=== PATIENT | female | born 1960 ===

== ENCOUNTER 2021-07-30 14:44 | Inpatient (IN) | payer OTHER, SELFPAY ==
[2021-07-30] VITALS (69 sets, daily range): BP systolic 101–135; BP diastolic 63–91; PULSE 65–99; RESP 9–35; TEMP 36.6–36.7; O2SAT 79–100
--- NOTE | 2021-07-30 14:45 | RT.EKG_ITS ---
APPROVED REPORT Exam: Resting ECG Reason for Exam: dizzy Patient Location: E HR:82 bpm ECG Measurements Heart Rate 82 AXIS WI 128 P 40 QRSd 101 QRS -8 QT 370 T 18 QTc 434 Conclusion Sinus rhythm...normal P axis, V-rate 60- 99 Low voltage, precordial leads...precordial leads <1.0mV sinus rhythm, normal axis, normal intervals, non ischemic
--- NOTE | 2021-07-30 15:44 | W.ED.GENAD ---
Discharge Plan Disposition Patient Disposition: STILL A PATIENT Condition: Stable Discharge Details Admit Date/Time: 07/30/21 20:49 Admit Provider: Jesica Fuentes Attending Provider: Jesica Fuentes Primary Care Provider: Unknown,Unknown ED Provider: Mike Talley Discharge Data Discharge Date/Time-TO BE ENTERED AT DEPARTURE: 07/30/21 21:03 Medical Decision Making <HAILEY Garcia - Last Filed: 07/31/21 19:56> Given patient's description of the event and symptoms associated I think she would benefit from admission for telemetry monitoring EKG is normal sinus rhythm at time of assessment Diagnostic labs are pending including troponin Blood pressure stable at time of assessment [facility] providerDr. Talley at 1600 pending labs and chest x-ray Patient with positive troponin. Delta troponin was obtained. The patient had no recurrence of dysrhythmias in the emergency department. I discussed the case with cardiology at [facility], Dr Denis Deshpande. The patient is on the emergent transfer list. Lovenox for anticoagulation. Case d/w Dr Fuentes - patient tda Medical Records Medical records reviewed: Yes I reviewed the patient's medical records. Lab Data Lab results reviewed: Yes I reviewed the patient's lab results. <Mike Talley MD - Last Filed: 07/30/21 20:50> Given patient's description of the event and symptoms associated I think she would benefit from admission for telemetry monitoring EKG is normal sinus rhythm at time of assessment Diagnostic labs are pending including troponin Blood pressure stable at time of assessment Service transferred to [facility] providerDr. Talley at 1600 pending labs and chest x-ray Patient with positive troponin. Delta troponin was obtained. The patient had no recurrence of dysrhythmias in the emergency department. I discussed the case with cardiology at [facility], Dr Denis Dsehpande. The patient is on the emergent transfer list. Lovenox for anticoagulation. Case d/w Dr Fuentes - patient tda HPI <HAILEY Garcia - Last Filed: 07/31/21 19:56> General Date/Time Provider Initiated Documentation: 07/30/21 15:04. HPI Narrative: This 61-year-old female who is otherwise healthy presents with report of palpitations and racing heartbeat, 190 per patient with hypotension, 80/50 on blood pressure cuff at home. She states this occurred directly after mowing the lawn. She states she felt very lightheaded and had to lower herself to the ground. She is unsure if she lost consciousness. She states that she was confused for several minutes. They reportedly have a blood pressure cuff at home that also checked her pulse and she confirmed her pulse at home. By time EMS arrived she was feeling improved without any palpitations. She did she had a similar episode in October and was not evaluated for this. She had some neck pain with radiation into her left arm with the bracing heart sensation. She denies any prior history of DVT. She does not smoke, drink, or use any illicit drugs. She denies any calf pain or swelling. She denies any injuries related to the event. Related Data Home Medications Medication Instructions Recorded Confirmed aspirin 325 mg tablet 325 mg PO PRN PRN 07/30/21 07/30/21 cranberry extract 650 mg capsule 650 mg PO DAILY 07/30/21 07/30/21 (Theracran) d-mannose 500 mg capsule 500 mg PO DAILY 07/30/21 07/30/21 famotidine 20 mg tablet (Pepcid) 20 mg PO .QHS 07/30/21 07/30/21 Allergies Allergy/AdvReac Type Severity Reaction Status Date / Time codeine Allergy Unverified 07/30/21 15:04 levofloxacin [From Levaquin] Allergy Unverified 07/30/21 15:05 General Stated Complaint: Dizzy/Sync ANUEL: 2 Review of Systems <HAILEY Garcia - Last Filed: 07/31/21 19:56> All systems reviewed & are unremarkable except as noted in HPI and below PFSH <HAILEY Garcia - Last Filed: 07/31/21 19:56> All Active Problems (Updated 07/30/21 @ 23:37 by Jesica Fuentes MD) Syncope (Acute) Discharge planning issues (Acute) DVT prophylaxis (Acute) Tachyarrhythmia (Acute) NSTEMI (non-ST elevated myocardial infarction) (Acute) Medical History (Updated 07/30/21 @ 23:37 by Jesica Fuentes MD) GERD (gastroesophageal reflux disease) Obesity (BMI 30.0-34.9) Vasovagal syncope Surgical History (Updated 07/30/21 @ 23:27 by Jesica Fuentes MD) S/P total abdominal hysterectomy and bilateral salpingo-oophorectomy for endometriosis Family History (Updated 07/30/21 @ 23:28 by Jesica Fuentes MD) Father Heart disease at the age of 50 Diabetes Cancer lymphoma Social History (Updated 07/30/21 @ 23:28 by Jesica Fuentes MD) Smoking/Tobacco Use Status: Never Smoking risk assessment performed?: Yes Alcohol Intake: current Alcohol Intake frequency: a few times a month Drug use: Never Exam <HAILEY Garcia - Last Filed: 07/31/21 19:56> Const General: cooperative, comfortable and no acute distress Orientation: alert and oriented x3 Eyes Pupils: PERRL Resp Effort & Inspection: normal respiratory effort Auscultation: clear to auscultation bilaterally Cardio Rate: regular rate Rhythm: regular rhythm GI Inspection: normal to inspection Auscultation: normal bowel sounds Other: No tenderness to palpation Skin General skin exam: no rashes or lesions noted Neuro General: patient alert and patient oriented x3 Extrem General: normal to inspection Other: Distal pulses intact No peripheral edema, no swelling or tenderness Course <HAILEY Garcia Last Filed: 07/31/21 19:56> Vital Signs Vital signs: Vital Signs Temperature 36.6 C 07/30/21 14:56 Pulse 86 07/30/21 14:56 Respiratory Rate 16 07/30/21 14:56 Blood Pressure 127/73 07/30/21 14:56 Pulse Oximetry 100 07/30/21 14:56 Temperature 36.6 C 07/30/21 14:56 Temperature Source Oral 07/30/21 14:56 Pulse 86 07/30/21 14:56 Respiratory Rate 14 07/30/21 15:12 Respiratory Effort 07/30/21 15:12 Respiratory Depth Normal 07/30/21 15:12 Respiratory Pattern Normal 07/30/21 15:12 Blood Pressure 127/73 07/30/21 14:56 Blood Pressure Position Sitting 07/30/21 14:56 Pulse Oximetry 100 07/30/21 14:56 Oxygen Delivery Method Room Air 07/30/21 14:56 Oxygen Flow Rate 0 07/30/21 14:56 Pain Level 0 07/30/21 14:56 Sign Out <HAILEY Garcia Last Filed: 07/31/21 19:56> Sign Out Data: Sign Out Comment: pending labs, cxr, and disposition Last updated by Raquel Reilly PA at 07/30/21 16:05
--- NOTE | 2021-07-30 15:45 | DI.RAD_ITS ---
Exam(s) XR PORTABLE CHEST AP EXAM: XR PORTABLE CHEST AP CLINICAL HISTORY: chest pain TECHNIQUE: 2D digital imaging was performed of the chest. One image was obtained. An AP view was ob tained. COMPARISON: No exams were available for comparison FINDINGS: MEDIASTINUM: Normal. HEART: Normal. PULMONARY VASCULATURE: Normal. LUNGS: Clear. PLEURAL SPACE: No pleural effusion or pneumothorax. BONE:Within normal limits for the patient's age. OTHER FINDINGS:Normal. IMPRESSION: No acute pulmonary findings. DATA REPOSITORY: RADIATION DOSE DELIVERED:
[2021-07-30 15:51] LABS: Abs Immature Grans 0.02 10^3/uL (0.0-0.06); Absolute Basophil Count 0.04 10^3/uL (0.0-0.2); Absolute Eosinophil Count 0.09 10^3/uL (0.0-0.7); Absolute Lymphocyte Count 1.69 10^3/uL (1.2-3.4); Absolute Monocyte Count 0.42 10^3/uL (0.1-0.8); Absolute Neutrophil Count 6.93 10^3/uL (1.2-6.7); Basophils % 0.4; HCT 43.9 % (36.0-46.0); HGB 14.3 g/dL (11.2-15.7); Immature Grans % 0.2; Lymphocytes % 18.4; MCH 29.8 pg (27.0-33.0); MCHC 32.6 % (32.0-36.0); MCV 92 fL (80-95); MPV 8.9 fL (8.0-11.0); Monocytes % 4.6; Neutrophils % 75.4; Platelet Count 194 10^3/uL (130-400); RDW 12.5 % (11.7-14.6); RDW-SD 41.8 fL; WBC 9.19 10^3/uL (4.4-10.8)
[2021-07-30] MEDS: Normal Saline 1,000 ML 1000 ML IV (15:53)
--- NOTE | 2021-07-30 16:13 | DI.VRAD_ITS ---
PROCEDURE INFORMATION: Exam: XR Chest Exam date and time: 07/30/2021 3:47 PM Age: 61 years old Clinical indication: Other: Unspecified chest pain TECHNIQUE: Imaging protocol: XR of the chest. Views: 1 view. COMPARISON: No relevant prior studies available. FINDINGS: Tubes, catheters and devices: EKG leads overlie the chest. Lungs: Unremarkable. No consolidation. Pleural spaces: Unremarkable. No pleural effusion. No pneumothorax. Heart/Mediastinum: Unremarkable. No cardiomegaly. Bones/joints: Unremarkable. IMPRESSION: No acute findings. Dictated and Authenticated by: Yehuda Recio MD. Ordering:BRITTANY García MD
[2021-07-30 16:14] LABS: ALT 107 U/L (14-59); AST 80 U/L (15-37); Albumin 3.6 g/dL (3.4-5.0); Alkaline Phosphatase 74 U/L (46-116); Anion Gap 11.6 mmol/L (3-11); BUN 14 mg/dL (7-18); Bilirubin, Total 0.4 mg/dL (0.2-1.0); CO2 25.4 mmol/L (21.0-32.0); CREATININE 1.1 mg/dL (0.55-1.02); Calcium 9.8 mg/dL (8.5-10.1); Chloride 107 mmol/L (98-107); Glucose 99 mg/dL (74-106); Magnesium 2.3 mg/dL (1.8-2.4); Potassium 3.5 mmol/L (3.5-5.1); Sodium 144 mmol/L (136-145); TSH (W/Ref FT4) 1.69 uIU/mL (0.36-3.74); Total Protein 7.7 g/dL (6.4-8.2)
[2021-07-30 16:17] LABS: Troponin I 322 ng/L (<or=60)
--- NOTE | 2021-07-30 16:19 | NUR.NOTE ---
pt states that durung the light headed episode she felt that her HR was 190 by palp ( herself) Nursing Note:
[2021-07-30 18:01] LABS: Source Nasal/Nares
[2021-07-30 18:50] LABS: COVID-19 PCR Negative (Negative)
[2021-07-30 19:14] LABS: Troponin I 666 ng/L (<or=60)
--- NOTE | 2021-07-30 19:15 | RT.EKG_ITS ---
APPROVED REPORT Exam: Resting ECG Reason for Exam: high trop Patient Location: E HR:74 bpm ECG Measurements Heart Rate 74 AXIS FL 132 P 42 QRSd 97 QRS 5 QT 385 T 28 QTc 427 Conclusion Sinus rhythm...normal P axis, V-rate 60- 99 Atrial premature complex...SV complex w/ short R-R interval Low voltage, extremity leads...all extremity leads <0.5mV sinus rhythm, normal axis, normal intervals, non ischemic
[2021-07-30] MEDS: Enoxaparin 80 MG/0.8 ML SYR SC (20:56)
--- NOTE | 2021-07-30 21:58 | HPE_ITS ---
Date of service: 07/30/21 Time of Service: 20:58 Assessment and Plan Assessment and plan (1) NSTEMI (non-ST elevated myocardial infarction): Status: Acute Assessment and plan: Accepted in transfer to [facility] when bed available under the care of Dr Deshpande. Will monitor on tele while trending troponins. Check D-dimer given recent travel. Received a dose of lovenox 80mg in the ED - will give 20 more mg to make it a weight based dose. Will continue asa. Will not give further lovenox as it might delay her anticipated cardiac cath. NPO after midnight. (2) Tachyarrhythmia: Status: Acute Assessment and plan: Will monitor for recurrence on tele. (3) Syncope: Status: Acute Assessment and plan: Due to above - as above (4) GERD (gastroesophageal reflux disease): Assessment and plan: Continue home pepcid. (5) Obesity (BMI 30.0-34.9): Assessment and plan: Check A1C, Fasting lipid panel (6) DVT prophylaxis: Status: Acute Assessment and plan: Therapeutic lovenox (7) Discharge planning issues: Status: Acute Assessment and plan: Full code Anticipate transfer to [facility] within 24 hrs History of Present Illness History of Present Illness Chief Complaint: Palpitations and left shoulder discomfort while mowing the lawn Narrative: Ms Salgado is a 61 yo F with PMHx of GERD who was brought to [facility] ED by ambulance after an episode of disorientation, lightheadedness, palpitations and L neck and shoulder discomfort while mowing today. The patient had lowered herself to the ground and thinks she may have syncopized, but came to it very quickly. When she felt a little better and went to the house, she used her automatic BP cuff, which showed HR of 199 and BP of 80/50. By the time EMS got to the house, she felt better. The whole episode lasted about 30 minutes. On arrival to the ED, the patient is normotensive and has a HR in the 80s. She is in NSR on the EKG. Her troponins, however, are positive (322->666). The patient was treated with asa, lovenox. The patient had one prior similar episode which was not investigated. She traveled from [place] where she resides 2 days ago by car. She thinks she may be dehydrated. She had COVID-19 in the beginning of July (tested negative on this admission). She drinks about 24 oz of coffee daily. She does not drink other caffeinated beverages and does not eat chocolate. She does snore. Her case was reviewed with [facility] cardiology, and the patient was accepted in transfer to [facility] under the care of Dr Deshpande. Admission to [facility] hospitalist service was requested while awaiting a bed at [facility] which should become available in the next 24 hrs. Review of Systems All systems reviewed & are unremarkable except as noted in HPI and below PFSH All Active Problems (Updated 07/30/21 @ 23:37 by Jesica Fuentes MD) Syncope (Acute) Discharge planning issues (Acute) DVT prophylaxis (Acute) Tachyarrhythmia (Acute) NSTEMI (non-ST elevated myocardial infarction) (Acute) Medical History (Updated 07/30/21 @ 23:37 by Jesica Fuentes MD) GERD (gastroesophageal reflux disease) Obesity (BMI 30.0-34.9) Vasovagal syncope Surgical History (Updated 07/30/21 @ 23:27 by Jesica Fuentes MD) S/P total abdominal hysterectomy and bilateral salpingo-oophorectomy for endometriosis Family History (Updated 07/30/21 @ 23:28 by Jesica Fuentes MD) Father Heart disease at the age of 50 Diabetes Cancer lymphoma Social History (Updated 07/30/21 @ 23:28 by Jesica Fuentes MD) Smoking/Tobacco Use Status: Never Smoking risk assessment performed?: Yes Alcohol Intake: current Alcohol Intake frequency: a few times a month Drug use: Never Meds Allergies and Home Medications Allergies Allergy/AdvReac Type Severity Reaction Status Date / Time codeine Allergy Unverified 07/30/21 15:04 levofloxacin [From Levaquin] Allergy Unverified 07/30/21 15:05 Home Medications Medication Instructions Recorded Confirmed Type aspirin 325 mg tablet 325 mg PO PRN PRN 07/30/21 07/30/21 History cranberry extract 650 mg capsule 650 mg PO DAILY 07/30/21 07/30/21 History (Theracran) d-mannose 500 mg capsule 500 mg PO DAILY 07/30/21 07/30/21 History famotidine 20 mg tablet (Pepcid) 20 mg PO .QHS 07/30/21 07/30/21 History Exam Narrative Exam Narrative: General: Pleasant middle-aged female who appears comfortable in bed, NAD Neurological: A&Ox3, no focal deficits Psychiatric: Appropriate speech pattern/content Skin: Visible skin intact, decreased skin turgor HEENT: Atraumatic, normocephalic, EOMI, MMM, clear oropharynx, no submandibular or cervical lymphadenopathy, no goiter or JVD Cardiovascular: RRR, no m/r/g Lungs: CTAB Gastrointestinal: soft,nontender, nondistended Genitourinary: deferred Extremities: no edema/clubbing/cyanosis, 2+pedal pulses B Results Imaging Additional studies: EKG #1: NSR, HR 82, no aucte ischemia EKG #2: NSR, HR 73, no acute ischemia CXR: No acute pulmonary findings Labs Result diagrams: 07/30/21 15:40 07/30/21 15:40 Labs: Laboratory Results - last 24 hr 07/30/21 07/30/21 07/30/21 15:40 15:40 17:59 WBC 9.19 RBC 4.80 Hgb 14.3 Hct 43.9 MCV 92 MCH 29.8 MCHC 32.6 RDW 12.5 Plt Count 194 MPV 8.9 Immature Gran % 0.2 Neutrophils % 75.4 Lymphocytes % 18.4 Monocytes % 4.6 Eosinophils % 1.0 Basophils % 0.4 Nucleated RBC % 0.0 Absolute Neutrophils 6.93 H Absolute Lymphocytes 1.69 Absolute Monocytes 0.42 Absolute Eosinophils 0.09 Absolute Basophils 0.04 Sodium 144 Potassium 3.5 Chloride 107 Carbon Dioxide 25.4 Anion Gap 11.6 H BUN 14 Creatinine 1.1 H Estimated GFR/1.73 m2 50.50 Glucose 99 Calcium 9.8 Magnesium 2.3 Total Bilirubin 0.4 AST 80 H ALT 107 H Alkaline Phosphatase 74 Troponin I 322 H* Total Protein 7.7 Albumin 3.6 TSH 1.69 COVID-19 Source Nasal/Nares SARS-CoV-2 (PCR) Negative 07/30/21 18:45 WBC RBC Hgb Hct MCV MCH MCHC RDW Plt Count MPV Immature Gran % Neutrophils % Lymphocytes % Monocytes % Eosinophils % Basophils % Nucleated RBC % Absolute Neutrophils Absolute Lymphocytes Absolute Monocytes Absolute Eosinophils Absolute Basophils Sodium Potassium Chloride Carbon Dioxide Anion Gap BUN Creatinine Estimated GFR/1.73 m2 Glucose Calcium Magnesium Total Bilirubin AST ALT Alkaline Phosphatase Troponin I 666 H* Total Protein Albumin TSH COVID-19 Source SARS-CoV-2 (PCR) Last Vital Signs Temp 36.6 C 07/30/21 14:56 Pulse 75 07/30/21 18:00 Resp 23 07/30/21 18:01 BP 118/85 07/30/21 18:00 Pulse Ox 99 07/30/21 18:01
[2021-07-30] MEDS: Famotidine 20 MG TAB PO (23:00)
[2021-07-30] MEDS: Lactated Ringers 1,000 ML 150 ML IV (23:15)
[2021-07-31] VITALS (44 sets, daily range): BP systolic 95–106; BP diastolic 53–66; PULSE 68–97; RESP 10–33; O2SAT 95–98
[2021-07-31 01:00] LABS: Troponin I 630 ng/L (<or=60)
[2021-07-31 01:59] LABS: D-Dimer 844 ng/mlFEU (<500)
[2021-07-31] MEDS: Enoxaparin 60 MG/0.6 ML SYR 20 MG SC (02:39)
[2021-07-31 07:03] LABS: HCT 38.3 % (36.0-46.0); HGB 12.5 g/dL (11.2-15.7); MCHC 32.6 % (32.0-36.0); MCV 92 fL (80-95); Platelet Count 172 10^3/uL (130-400); RBC 4.17 10^6/uL (3.93-5.22); RDW 12.6 % (11.7-14.6); RDW-SD 42.3 fL; WBC 6.55 10^3/uL (4.4-10.8)
[2021-07-31 07:16] LABS: Hemoglobin A1C 5.7 % (<5.7)
[2021-07-31 07:18] LABS: ALT 70 U/L (14-59); AST 37 U/L (15-37); Alkaline Phosphatase 59 U/L (46-116); Anion Gap -1.3 mmol/L (3-11); BUN 7 mg/dL (7-18); Bilirubin, Direct 0.1 mg/dL (0.0-0.2); Bilirubin, Total 0.4 mg/dL (0.2-1.0); CO2 24.3 mmol/L (21.0-32.0); CREATININE 0.7 mg/dL (0.55-1.02); Calcium 8.7 mg/dL (8.5-10.1); Chloride 108 mmol/L (98-107); Glucose 104 mg/dL (74-106); Magnesium 2.1 mg/dL (1.8-2.4); Potassium 3.4 mmol/L (3.5-5.1); Sodium 131 mmol/L (136-145); Total Protein 6.5 g/dL (6.4-8.2)
[2021-07-31] MEDS: Aspirin E.C. 81 MG TABEC PO (07:44)
--- NOTE | 2021-07-31 08:21 | INITIAL_ITS ---
- If Service Date Differs Date of service: 07/31/21 Time of Service: 08:21 Care Management Initial Assess REASON FOR HOSPITALIZATION:: NSTEMI, Tachyarrhythmia, Syncope PAST MEDICAL HISTORY/PAST SURGICAL HISTORY:: All Active Problems (Updated 07/30/21 @ 23:37 by Jesica Fuentes MD). Syncope (Acute). Discharge planning issues (Acute). DVT prophylaxis (Acute). Tachyarrhythmia (Acute). NSTEMI (non-ST elevated myocardial infarction) (Acute). Medical History (Updated 07/30/21 @ 23:37 by Jesica Fuentes MD). GERD (gastroesophageal reflux disease). Obesity (BMI 30.0-34.9). Vasovagal syncope. Surgical History (Updated 07/30/21 @ 23:27 by Jesica Fuentes MD). S/P total abdominal hysterectomy and bilateral salpingo-oophorectomy. for endometriosis CODE STATUS:: Full Code INSURANCE COVERAGE / FINANCIAL ISSUES:: [employer]:: discussed case with Dr Denis Deshpande from [facility] cardiology. Mariela Gill was placed on the emergent transfer list. Anticipate transfer to [facility] within 24 hrs
--- NOTE | 2021-07-31 09:52 | W.PM.DS.N ---
Date of service: 07/31/21 Time of Service: 08:52 DS: Diagnosis Discharge Diagnosis (1) NSTEMI (non-ST elevated myocardial infarction): Start date: 07/31/21 Start time: :52 Status: Acute (2) Tachyarrhythmia: Status: Acute (3) Syncope: Status: Acute (4) GERD (gastroesophageal reflux disease): (5) Obesity (BMI 30.0-34.9): (6) DVT prophylaxis: Status: Acute (7) Discharge planning issues: Status: Acute Discharge Plan Disposition Patient Disposition: [facility] ([facility]) Condition: Stable Discharge Details Reason For Visit: NSTEMI, tachyarrhythmia Admit Date/Time: 07/30/21 20:49 Admit Provider: Jesica Fuentes Attending Provider: Jesica Fuentes Primary Care Provider: Unknown,Unknown Hospital Course Hospital Course: Ms Salgado is a 61 yo F with PMHx of GERD who was brought to [facility] ED by ambulance after an episode of disorientation, lightheadedness, palpitations and L neck and shoulder discomfort while mowing today. The patient had lowered herself to the ground and thinks she may have syncopized, but came to it very quickly. When she felt a little better and went to the house, she used her automatic BP cuff, which showed HR of 199 and BP of 80/50. By the time EMS got to the house, she felt better. The whole episode lasted about 30 minutes. On arrival to the ED, the patient is normotensive and has a HR in the 80s. She is in NSR on the EKG. Her troponins, however, are positive (322->666). The patient was treated with asa, lovenox. The patient had one prior similar episode which was not investigated. She? traveled from [place] where she resides 2 days ago by car. She thinks she may be dehydrated. She had COVID-19 in the beginning of July (tested negative on this admission). She drinks about 24 oz of coffee daily. She does not drink other caffeinated beverages and does not eat chocolate. She does snore. Her case was reviewed with [facility] cardiology, and the patient was accepted in transfer to [facility] under the care of Dr Deshpande. Admission to [facility] hospitalist service was requested while awaiting a bed at [facility] which should become available in the next 24 hrs. During her overnight stay at [facility] no arrythmias noted on monitoring. She had no further episodes involving the symptoms that prompted her admission. Her troponin levels were: 322>666>630. Home Meds and New Rx's Prescriptions: No Action famotidine [Pepcid] 20 mg Tablet 20 mg PO .QHS aspirin 325 mg Tablet 325 mg PO PRN PRN Theracran 650 mg Capsule 650 mg PO DAILY d-mannose 500 mg Capsule 500 mg PO DAILY Discharge Orders Discharge Orders: Discharge Order (Routine); Ordered 07/31/21 Ordered By: Henrique Rose DS: Summary Time Spent with Patient providing and/or coordinating discharge services: Greater than 30 minutes Status at Discharge Functional status at discharge: independent ambulation Overall status at discharge: patient is not back to baseline Mental Status: mental status grossly normal Speech and Movement: speech and movement normal Mood: congruent mood Affect: normal affect Exam Narrative Exam Narrative: General: Pleasant middle-aged female who appears comfortable in bed, NAD Neurological: A&Ox3, no focal deficits Psychiatric: Appropriate speech pattern/content Skin: Visible skin intact, decreased skin turgor HEENT: Atraumatic, normocephalic, EOMI, MMM, clear oropharynx, no submandibular or cervical lymphadenopathy, no goiter or JVD Cardiovascular: RRR, no m/r/g Lungs: CTAB Gastrointestinal: soft,nontender, nondistended Genitourinary: deferred Extremities: no edema/clubbing/cyanosis, 2+pedal pulses B Psych Mental Status: mental status grossly normal Speech and Movement: speech and movement normal Mood: congruent mood Affect: normal affect DS: Data Vitals/I&O Vitals and I&O: Vital Signs Temperature 36.7 C 07/30/21 22:30 Temperature Source Temporal Artery Scan 07/30/21 22:30 Pulse 70 07/31/21 07:22 Pulse Rhythm Regular 07/31/21 08:33 Pulse 80 07/31/21 06:20 Respiratory Rate 16 07/31/21 06:20 Respiratory Effort Non-Labored 07/31/21 08:33 Respiratory Depth Normal 07/31/21 08:33 Respiratory Pattern Normal 07/31/21 08:33 Blood Pressure 106/66 07/31/21 06:00 Blood Pressure Mean 73 07/31/21 06:00 Blood Pressure Position Supine 07/30/21 22:30 Pulse Oximetry 98 07/31/21 06:20 Oxygen Delivery Method Room Air 07/30/21 22:30 Oxygen Flow Rate 0 07/30/21 22:30 Pain Level 0 07/30/21 22:30 Intake & Output 07/30/21 07/30/21 07/31/21 11:59 23:59 11:59 Intake Total 833.333 / 0868.354 1624 / 2050 Output Total 1600 / 1600 Balance 833.333 / 1333.333 450 / 450 Weight 96 kg 96 kg Intake: IV 833.333 / 029.775 1978 / 1000 Oral 1050 / 1050 Output: Urine 1600 / 1600 Other: Urine Color Pale Urine Appearance Clear Urine Odor None Voiding Methods Bedside Commode Data Completed and Pending Labs on day of discharge: Labs from last 24 hours 07/31/21 07/31/21 07/31/21 06:30 06:30 06:30 WBC 6.55 RBC 4.17 Hgb 12.5 Hct 38.3 MCV 92 MCH 30.0 MCHC 32.6 RDW 12.6 Plt Count 172 MPV 9.0 Immature Gran % Neutrophils % Lymphocytes % Monocytes % Eosinophils % Basophils % Nucleated RBC % Absolute Neutrophils Absolute Lymphocytes Absolute Monocytes Absolute Eosinophils Absolute Basophils D-Dimer Sodium 131 L D Potassium 3.4 L Chloride 108 H Carbon Dioxide 24.3 Anion Gap -1.3 L BUN 7 Creatinine 0.7 Estimated GFR/1.73 m2 >= 60.00 Glucose 104 Hemoglobin A1c 5.7 Calcium 8.7 Magnesium 2.1 Total Bilirubin 0.4 Conjugated Bilirubin 0.1 AST 37 ALT 70 H Alkaline Phosphatase 59 Troponin I Total Protein 6.5 Albumin 3.0 L TSH COVID-19 Source SARS-CoV-2 (PCR) 07/31/21 07/30/21 07/30/21 00:00 23:50 23:50 WBC RBC Hgb Hct MCV MCH MCHC RDW Plt Count MPV Immature Gran % Neutrophils % Lymphocytes % Monocytes % Eosinophils % Basophils % Nucleated RBC % Absolute Neutrophils Absolute Lymphocytes Absolute Monocytes Absolute Eosinophils Absolute Basophils D-Dimer 844 H Sodium Potassium Chloride Carbon Dioxide Anion Gap BUN Creatinine Estimated GFR/1.73 m2 Glucose Hemoglobin A1c Calcium Magnesium Total Bilirubin Conjugated Bilirubin AST ALT Alkaline Phosphatase Troponin I Cancelled 630 H* Total Protein Albumin TSH COVID-19 Source SARS-CoV-2 (PCR) 07/30/21 07/30/21 07/30/21 18:45 17:59 15:40 WBC 9.19 RBC 4.80 Hgb 14.3 Hct 43.9 MCV 92 MCH 29.8 MCHC 32.6 RDW 12.5 Plt Count 194 MPV 8.9 Immature Gran % 0.2 Neutrophils % 75.4 Lymphocytes % 18.4 Monocytes % 4.6 Eosinophils % 1.0 Basophils % 0.4 Nucleated RBC % 0.0 Absolute Neutrophils 6.93 H Absolute Lymphocytes 1.69 Absolute Monocytes 0.42 Absolute Eosinophils 0.09 Absolute Basophils 0.04 D-Dimer Sodium Potassium Chloride Carbon Dioxide Anion Gap BUN Creatinine Estimated GFR/1.73 m2 Glucose Hemoglobin A1c Calcium Magnesium Total Bilirubin Conjugated Bilirubin AST ALT Alkaline Phosphatase Troponin I 666 H* Total Protein Albumin TSH COVID-19 Source Nasal/Nares SARS-CoV-2 (PCR) Negative 07/30/21 15:40 WBC RBC Hgb Hct MCV MCH MCHC RDW Plt Count MPV Immature Gran % Neutrophils % Lymphocytes % Monocytes % Eosinophils % Basophils % Nucleated RBC % Absolute Neutrophils Absolute Lymphocytes Absolute Monocytes Absolute Eosinophils Absolute Basophils D-Dimer Sodium 144 Potassium 3.5 Chloride 107 Carbon Dioxide 25.4 Anion Gap 11.6 H BUN 14 Creatinine 1.1 H Estimated GFR/1.73 m2 50.50 Glucose 99 Hemoglobin A1c Calcium 9.8 Magnesium 2.3 Total Bilirubin 0.4 Conjugated Bilirubin AST 80 H ALT 107 H Alkaline Phosphatase 74 Troponin I 322 H* Total Protein 7.7 Albumin 3.6 TSH 1.69 COVID-19 Source SARS-CoV-2 (PCR) PFSH All Active Problems (Updated 07/30/21 @ 23:37 by Jesica Fuentes MD) Syncope (Acute) Discharge planning issues (Acute) DVT prophylaxis (Acute) Tachyarrhythmia (Acute) NSTEMI (non-ST elevated myocardial infarction) (Acute) Medical History (Updated 07/30/21 @ 23:37 by Jesica Fuentes MD) GERD (gastroesophageal reflux disease) Obesity (BMI 30.0-34.9) Vasovagal syncope Surgical History (Updated 07/30/21 @ 23:27 by Jesica Fuentes MD) S/P total abdominal hysterectomy and bilateral salpingo-oophorectomy for endometriosis Family History (Updated 07/30/21 @ 23:28 by Jesica Fuentes MD) Father Heart disease at the age of 50 Diabetes Cancer lymphoma Social History (Updated 07/30/21 @ 23:28 by Jesica Fuentes MD) Smoking/Tobacco Use Status: Never Smoking risk assessment performed?: Yes Alcohol Intake: current Alcohol Intake frequency: a few times a month Drug use: Never
--- NOTE | 2021-07-31 11:46 | PDOC.CMDIS ---
- If Service Date Differs Date of service: 07/31/21 Time of Service: 11:46 LACE Index Scoring Tool - Questions: Length of Stay (in days): 1 Acuity (Admit via E.D.?): Yes Comorbidities: Previous M.I. E.D. Visits: 1 - Answers: Total Score: 6 Risk of Readmission: Low Risk Care Management Discharge Reason for Hospitalization: NSTEMI, Tachyarrhythmia, Syncope Discharge Plan: Transfer to [facility] via EMS arranged by RN aging department supervisor. Patient/Family Education Needs: Review transfer instructions, ask me three. - Disposition Transport via of: EMS
== END 2021-07-31 10:55 | disposition short-term general hospital (02) | DRG 282 ==
LOC: ER 20:58 → ICU 21:11
PROVIDERS: Physician Assistant; Admitting Provider Internal Medicine; Emergency Provider Emergency Medicine; Visit Provider Internal Medicine
DX: I21.4 Non-ST elevation (NSTEMI) myocardial infarction (principal); R55 Syncope and collapse; R00.0 Tachycardia, unspecified; K21.9 Gastro-esophageal reflux disease without esophagitis; E66.9 Obesity, unspecified; Z68.34 Body mass index [BMI] 34.0-34.9, adult; R41.0 Disorientation, unspecified; Z86.16 Personal history of COVID-19
CPT/HCPCS: 36415; 80048; 80053; 80076; 85027; 87635; 93005; 96360; 96372; 99285; 71045; 83036; 83735; 84443; 84484; 85025; 85379; 93010; 99223; 99239; J1650